=== PATIENT | male | born 1980 | race Caucasian/White ===

== ENCOUNTER 2025-08-06 17:59 | Emergency (ER) | payer SELFPAY ==
[2025-08-06 18:24] VITALS: BP 140/94; PULSE 81; RESP 16; TEMP 36.9; O2SAT 100
--- NOTE | 2025-08-06 18:26 | ED.GENADULT ---
HPI - General Adult General Chief complaint: Unspecified Stated complaint: food lodged in throat Time Seen by Provider: 08/06/25 18:10 Source: patient and RN notes reviewed Mode of arrival: ambulatory Limitations: no limitations History of Present Illness HPI narrative: 45-year-old male presents to [facility] complaining of food stuck in throat. Losing steak approximally 3 hours ago when he got a P stuck in his esophagus. Patient denies any choking however he feels like some stuck in his throat. Patient trying to drink fluids and attempt to flush the obstruction and is unable to, he reports he is throwing fluid back up afterwards. Patient into the vomit without success. Patient denies any difficulty breathing, or stridor, or any other symptoms. Patient says he has a history of this but states he has never had to go to GI for it. Review of Systems Review of Systems: CONSTITUTIONAL: Denies fever, chills, or sweats. EYES: Denies visual changes, redness, or discharge. ENT: Denies rhinorrhea, congestion, sore throat, or otalgia. Positive for dysphagia CARDIOVASCULAR: Denies chest pain, palpitations, or edema. RESPIRATORY: Denies cough or dyspnea. GASTROINTESTINAL: Denies abdominal pain, nausea, or diarrhea. Positive vomiting. GENITOURINARY: Denies dysuria or hematuria. SKIN: Denies rash or itching. MUSCULOSKELETAL: Denies back pain, joint pain, or myalgia. NEUROLOGIC: Denies headache, numbness, or weakness. PSYCHIATRIC: Denies anxiety or depression. All other systems reviewed are negative, except as documented in HPI. PMFSH Comments At the time of my signature, I reviewed and agree with the nursing past medical, surgical, social, and family history. There is no relevant family history pertinent to the patient complaint. Exam Narrative: GENERAL: This is a well-nourished, well-developed adult, in no apparent distress. They are non ill-appearing, nontoxic appearing. HEAD: normocephalic, atraumatic. EYES: Sclera clear/white. Conjunctiva normal. Vision is grossly intact. Extraocular movements intact EARS: External ears normal, Hearing grossly intact. NOSE: External nose normal THROAT: Mucous membranes moist, posterior pharynx erythema without swelling. Uvula midline. NECK: Neck supple, non-tender without lymphadenopathy, masses or thyromegaly. CARDIOVASCULAR: Regular rate and rhythm without murmurs, gallops, or rubs. RESPIRATORY: Clear to auscultation. Breath sounds equal bilaterally. No wheezes, rales, or rhonchi. SKIN: warm, Dry, intact with no suspicious lesions or rash, good texture and turgor. NEURO: awake, alert, and oriented to person, place and time. There were no obvious focal neurologic abnormalities. EXTREMITIES: No joint tenderness, effusion, or edema noted. Course Course Emergency Course: Portions of this record may have been created with voice recognition software Level of Care: Express Care Visit Vital Signs Vital signs: Vital Signs Temperature 98.4 F 08/06/25 18:24 Pulse Rate 81 08/06/25 18:24 Respiratory Rate 16 08/06/25 18:24 Blood Pressure 140/94 H 08/06/25 18:24 Pulse Oximetry 100 08/06/25 18:24 Oxygen Delivery Room Air 08/06/25 18:24 Temperature 98.4 F 08/06/25 18:24 Pulse Rate 81 08/06/25 18:24 Respiratory Rate 16 08/06/25 18:24 Blood Pressure 140/94 H 08/06/25 18:24 Pulse Oximetry 100 08/06/25 18:24 Oxygen Delivery Room Air 08/06/25 18:24 Reviewed Transfer Transfered to: [facility]: [facility] Transfer rationale: Possible esophageal obstruction due to food impaction, patient requires higher level care, possible GI consult Accepting physician: Dr. Potter Medical Decision Making MDM Narrative Medical decision making narrative: Patient likely has food impaction with esophageal obstruction. No respiratory compromise, airways patent. Vital signs hemodynamically stable. Given patient's symptoms, it is recommend the patient seek a higher level care and proceed immediately to the emergency department. Patient is agreeable at [facility]. Patient agreed to go by ambulance. EMS called. Called over to [facility] spoke to Dr. Potter who is aware this patient and accepted the patient for transfer. Patient advised to remain NPO proceed immediately to the ER. Differential Diagnosis Differential Diagnosis: Esophageal obstruction, Food impaction, choking, stridor, difficulty breathing Vital Signs Vital Signs: Vital Signs Temperature 98.4 F 08/06/25 18:24 Pulse Rate 81 08/06/25 18:24 Respiratory Rate 16 08/06/25 18:24 Blood Pressure 140/94 H 08/06/25 18:24 Pulse Oximetry 100 08/06/25 18:24 Oxygen Delivery Room Air 08/06/25 18:24 Temperature 98.4 F 08/06/25 18:24 Pulse Rate 81 08/06/25 18:24 Respiratory Rate 16 08/06/25 18:24 Blood Pressure 140/94 H 08/06/25 18:24 Pulse Oximetry 100 08/06/25 18:24 Oxygen Delivery Room Air 08/06/25 18:24 Critical Care Time Critical Care Time Critical Care Time: No Discharge Plan Discharge Clinical Impression: Esophageal obstruction due to food impaction Patient Disposition: Acute Care Hospital Condition: Stable Patient Language: Thai Follow-up/Referrals: PHYSICIAN,KEYBOARD INSTRUMENT REPAIRER [Primary Care Provider, Internal Medicine] Time of Disposition: 18:26
== END 2025-08-06 18:22 | disposition short-term general hospital (02) ==
DX: T18.128A Food in esophagus causing other injury, initial encounter (principal); W44.F3XA Food entering into or through a natural orifice, initial encounter
CPT/HCPCS: 99215; G0463

== ENCOUNTER 2025-08-06 18:43 | Emergency (ER) | payer SELFPAY ==
[2025-08-06] VITALS (10 sets, daily range): BP systolic 129–171; BP diastolic 82–100; PULSE 70–86; RESP 13–20; TEMP 36.2–36.7; O2SAT 96–100
--- NOTE | ~2025-08-06 | XR_ITS ---
XR chest 1V portable INDICATION:food bolus . REFERENCE: None FINDINGS: A single AP of the chest demonstrates normal heart size. The lungs are clear. There is no evidence of pneumothorax or pleural effusion. IMPRESSION: No acute pulmonary findings. Reviewed, dictated and finalized at location S.
--- NOTE | 2025-08-06 20:20 | ED.SKABFB ---
HPI - Skin/Abscess/Foreign Bdy General Chief complaint: Skin/Abscess/Foreign Body Stated complaint: food bolus Time Seen by Provider: 08/06/25 20:13 History of Present Illness HPI narrative: 45-year-old male with no pertinent past medical history presenting to the emergency department with food bolus impaction. He was eating steak approximately 3:00 p.m. earlier today when he fell to get stuck in his esophagus. States that this happened to him several times and usually goes away on its own. Denies any history of endoscopy. States that whenever he tries to swallow anything he spits it right back up and even his own secretions. Awake alert oriented. Went to urgent care prior to arrival and was transferred to the ER for further evaluation. No shortness of breath, difficulty breathing, stridor, chest pain, shortness a breath. Only feeling sensation of a stock piece of food in his neck/chest. Related Data Home Medications ?Medication ?Instructions ?Recorded ?Confirmed ?Last Taken ?Type No Home Medications 08/06/25 08/06/25 Unknown History Allergies Allergy/AdvReac Type Severity Reaction Status Date / Time No Known Allergies Allergy Verified 08/06/25 18:31 Review of Systems Review of Systems: As reviewed above in HPI Exam Narrative: GENERAL: Well-appearing. Spitting up frequently throughout the examination. Conversing in full sentences. HEAD: [Normocephalic, atraumatic.] EYES: [PERRLA and EOMI.] ENT: Nares clear, no rhinorrhea or epistaxis. Mucous membranes moist. NECK: Supple. CHEST: [Clear to auscultation. No respiratory distress.] HEART: [Regular rate and rhythm]. No murmur heard. [Normal peripheral pulses.] ABDOMEN: [Soft, nondistended], [nontender], [No rigidity or guarding] EXTREMITIES: Normal range of motion. [No edema.] SKIN: Warm, dry, no rash. NEURO: [No focal deficits]. Alert and oriented [x3.] PSYCH: [Normal mood and affect.] Course Vital Signs Vital signs: Vital Signs Temperature 36.7 C 08/06/25 19:17 Pulse Rate 86 08/06/25 19:17 Respiratory Rate 18 08/06/25 19:17 Blood Pressure 140/98 H 08/06/25 19:17 Pulse Oximetry 100 08/06/25 19:17 Temperature 36.2 C L 08/06/25 22:33 Pulse Rate 71 08/06/25 23:23 Respiratory Rate 20 08/06/25 23:23 Blood Pressure 147/94 H 08/06/25 23:23 Pulse Oximetry 98 08/06/25 23:23 Oxygen Delivery Room Air 08/06/25 23:23 MDM - Skin/Abscess/Foreign Bdy MDM Narrative Medical decision making narrative: 45-year-old male with no pertinent past medical history presenting to the emergency department with food bolus impaction. He was eating steak approximately 3:00 p.m. earlier today when he fell to get stuck in his esophagus. States that this happened to him several times and usually goes away on its own. Denies any history of endoscopy. States that whenever he tries to swallow anything he spits it right back up and even his own secretions. Awake alert oriented. Went to urgent care prior to arrival and was transferred to the ER for further evaluation. No shortness of breath, difficulty breathing, stridor, chest pain, shortness a breath. Only feeling sensation of a stock piece of food in his neck/chest. Physical exam is largely unremarkable with normal vital signs but patient is spitting up frequently throughout the examination given his suspected food bolus impaction. Upper chest x-ray obtained does not show any free air or signs of any acute cardiothoracic process. Laboratory studies obtained and he was given combination of Pepcid Zofran and intravenous glucagon to try and dislodge the food bolus given that he has never had GI evaluation for this and usually passes spontaneously. Will trial conservative therapy and if unsuccessful call in GI for endoscopy. Conservative therapy unsuccessful. Patient still awake and tolerating secretions but spitting up frequently. Spoke to Dr. Arvizu who activated the GI suite for endoscopy removal and patient left the ER to go to GI lab. Medical Records Attestation: I reviewed the patient's medical records. Lab Data Attestation: I reviewed the patient's lab results. 08/06/25 20:34 08/06/25 20:34 Labs: Lab Results 08/06/25 Range/Units 20:34 WBC 11.0 H (4.5-10.0) K/mm3 RBC 4.84 (4.6-6.20) M/mm3 Hgb 15.0 (14.0-18.0) g/dL Hct 44.7 (42.0-52.0) % MCV 92.4 (80-100) fl MCH 31.0 (26-34) pg MCHC 33.6 (32-36) g/dl RDW 12.6 (11.5-14.5) % Plt Count 367 (150-375) k/mm3 MPV 9.6 (7.4-10.4) fl Immature Gran % (Auto) 0.2 (0-0.5) % Neut % (Auto) 74.6 H (45.5-73.1) % Lymph % (Auto) 16.5 L (18.3-44.2) % [place] % (Auto) 6.7 (2.6-8.5) % Eos % (Auto) 1.4 (0-4.4) % Baso % (Auto) 0.6 (0.2-1.2) % Lymph # (Auto) 1.81 (0.9-3.2) K/mm3 [place] # (Auto) 0.7 H (0.1-0.6) K/mm3 Eos # (Auto) 0.2 (0-0.3) K/mm3 Baso # (Auto) 0.1 (0.0-0.1) K/mm3 Abs Immat Gran (auto) 0.02 (0.00-0.031) K/mm3 Absolute Neuts (auto) 8.2 H (1.3-6.7) K/mm3 Absolute Nucleated RBC 0.000 (0.0-0.012) K/mm3 Nucleated RBC % 0.0 (0.0-0.2) % PT 15.7 H (11.1-14.7) Seconds INR 1.3 APTT 31.1 (22.3-36.8) Seconds Sodium 138 (137-145) mmol/L Potassium 3.4 (3.4-5.0) mmol/L Chloride 103 (98-107) mmol/L Carbon Dioxide 27 (22-30) mmol/L Anion Gap 8 (4-12) mmol/L BUN 10 (9-20) mg/dL Creatinine 0.83 (0.7-1.3) mg/dL Estim Creat Clear Calc 89 ml/min Estimated GFR > 60 (59 - ) Glucose 91 (65-110) mg/dL Calcium 9.3 (8.4-10.2) mg/dL Imaging Data Attestation: I personally reviewed and interpreted this imaging study as follows: My impression: Impressions Chest X-Ray 08/06/25 20:50 IMPRESSION: No acute pulmonary findings. Critical Care Time Critical Care Time Critical Care Time: Yes Total Critical Care Time: 35 Discharge Plan Discharge Clinical Impression: Esophageal obstruction due to food impaction Patient Disposition: Home Condition: Improved Instructions: Antibiotic Form Patient Language: Belarusian Prescriptions: No Action No Home Medications Follow-up/Referrals: PHYSICIAN,DYE PENETRANT TESTING TECHNICIAN [Primary Care Provider, Internal Medicine] Stand Alone Forms: General Discharge Information Time of Disposition: 06:32
[2025-08-06] MEDS: ONDANSETRON INJ 4 MG/2 ML VIAL IV PUSH (20:30)
[2025-08-06] MEDS: FAMOTIDINE 20 MG/2 ML VIAL IV PUSH (20:32)
[2025-08-06 20:41] LABS: Hematocrit 44.7 % (42.0-52.0); Hemoglobin 15.0 g/dL (14.0-18.0); Immature Granulocyte Percent A 0.2 % (0-0.5); Lymphocytes Absolute Auto 1.81 K/mm3 (0.9-3.2); Mean Corpuscular HGB Conc 33.6 g/dl (32-36); Mean Corpuscular Hemoglobin 31.0 pg (26-34); Mean Corpuscular Volume 92.4 fl (80-100); Nucleated Red Blood Cells Absolute Auto 0.000 K/mm3 (0.0-0.012); Nucleated Red Blood Cells Perc 0.0 % (0.0-0.2); Platelet Count Result 367 k/mm3 (150-375); Red Blood Count 4.84 M/mm3 (4.6-6.20); White Blood Count 11.0 K/mm3 (4.5-10.0)
[2025-08-06] MEDS: GLUCAGON FOR INJ 1 MG VIAL IV PUSH (20:44)
[2025-08-06 20:53] LABS: Anion Gap 8 mmol/L (4-12); Blood Urea Nitrogen 10 mg/dL (9-20); Calcium 9.3 mg/dL (8.4-10.2); Carbon Dioxide 27 mmol/L (22-30); Chloride 103 mmol/L (98-107); Estimated CRCL calculation 89 ml/min; Estimated Glomerular Filt Rate > 60; Glucose 91 mg/dL (65-110); Potassium 3.4 mmol/L (3.4-5.0); Sodium 138 mmol/L (137-145)
[2025-08-06 21:01] LABS: INR 1.3; Prothrombin Time 15.7 Seconds (11.1-14.7)
[2025-08-06 21:02] LABS: Partial Thromboplastin Time 31.1 Seconds (22.3-36.8)
--- NOTE | 2025-08-06 22:27 | P.HP_ITS ---
History of Present Illness History of Present Illness Consent: Risks, benefits, and alternatives have been discussed and questions answered. Patient agrees to proceed with procedure. Chief complaint: food bolus Narrative: Rome Rosado is a 45 year old male here with food bolus, he had steak at 2 pm and can not even swallow own saliva, never had EGD. Review of Systems Review of Systems: All systems reviewed & are unremarkable except as noted in HPI and below Meds Home Medications and Allergies Home Medications ?Medication ?Instructions ?Recorded ?Confirmed ?Type No Home Medications 08/06/25 08/06/25 H istory Allergies Allergy/AdvReac Type Severity Reaction Status Date / Time No Known Allergies Allergy Verified 08/06/25 18:31 Vital Signs Vital Signs - 24 hr 08/06/25 19:17 08/06/25 20:16 08/06/25 22:03 Temperature 98.1 F 97.8 F Pulse Rate 86 80 71 Respiratory Rate 18 14 13 Blood Pressure 140/98 H 144/93 H 139/89 Pulse Oximetry 100 100 100 Oxygen Delivery Room Air 08/06/25 22:13 Temperature 97.8 F Pulse Rate 82 Respiratory Rate 20 Blood Pressure 171/100 H Pulse Oximetry 100 Oxygen Delivery Room Air Exam Const: General: comfortable and no acute distress HENMT: Face/Nose/Sinus: Normal nares present Eyes: General: appearance normal, both eyes and all related structures Neck: Neck: no JVD Resp: Auscultation: clear to auscultation bilaterally Cardio: Rate: regular rate Rhythm: regular rhythm GI: Inspection: non-distended GI Palp: Yes Soft to palpation Skin: General skin exam: normal color Extrem: General: normal to inspection Psych: Mental Status: mental status grossly normal Assessment and Plan Assessment and plan (1) Esophageal obstruction due to food impaction: Code(s): T18.128A - Food in esophagus causing other injury, initial encounter; W44.F3XA - Food entering into or through a natural orifice, initial encounter Status: Acute Assessment and Plan: urgent EGD
--- NOTE | 2025-08-06 22:29 | S_PTH ---
PATIENT: Rome Rosado LOC: [facility]#:[id number] AGE/SX: 45/M ROOM: RE08/06/[address]: Denzel Khoury MD : 1980 BED: DIS: 08/06/2025 SPEC #: [id number] RECD: 08/07/25 08:04 STATUS: CHARO REQ #: [id number] ARABELLA: 08/06/25 22:[address]: Joseph Mccartney DEPT: [facility] Surgical RECD BY: Sandy Madrid ENTERED: 08/07/25 08:04 SP TYPE: Surgical OTHR DR: HAND CANDLE MOLDER PHYSICIAN Denzel Khoury MD Tissues: A - Esophageal Biopsy B - Gastric Biopsy Procedures: Hematoxylin and Eosin Stain Gross and Microscopic Level 4
--- NOTE | 2025-08-06 22:32 | P.PNAN_ITS ---
Anes - Initial Pre Proc Eval Procedure: Operation Date: 08/06/25 10:00 Proposed Procedures p Esophagogastroduodenoscopy EGD - Joseph Mccartney MD Date/Time: 08/06/25 22:32 Pre Op Diagnosis: food bolus Patient Data Age: 45 Gender: M Height: 1.85 m Weight: 63.8 kg Last Vital Signs Temp 36.6 C 08/06/25 22:13 Pulse 82 08/06/25 22:13 Resp 20 08/06/25 22:13 BP 171/100 H 08/06/25 22:13 Pulse Ox 100 08/06/25 22:13 O2 Del Method Room Air 08/06/25 22:13 Allergies Allergy/AdvReac Type Severity Reaction Status Date / Time No Known Allergies Allergy Verified 08/06/25 18:31 Home Medications ?Medication ?Instructions ?Recorded ?Confirmed ?Type No Home Medications 08/06/25 08/06/25 H istory Laboratory Tests 08/06/25 20:34 WBC 11.0 H K/mm3 (4.5-10.0) RBC 4.84 M/mm3 (4.6-6.20) Hgb 15.0 g/dL (14.0-18.0) Hct 44.7 % (42.0-52.0) MCV 92.4 fl (80-100) MCH 31.0 pg (26-34) MCHC 33.6 g/dl (32-36) RDW 12.6 % (11.5-14.5) Plt Count 367 k/mm3 (150-375) MPV 9.6 fl (7.4-10.4) Immature Gran % (Auto) 0.2 % (0-0.5) Neut % (Auto) 74.6 H % (45.5-73.1) Lymph % (Auto) 16.5 L % (18.3-44.2) [place] % (Auto) 6.7 % (2.6-8.5) Eos % (Auto) 1.4 % (0-4.4) Baso % (Auto) 0.6 % (0.2-1.2) Lymph # (Auto) 1.81 K/mm3 (0.9-3.2) [place] # (Auto) 0.7 H K/mm3 (0.1-0.6) Eos # (Auto) 0.2 K/mm3 (0-0.3) Baso # (Auto) 0.1 K/mm3 (0.0-0.1) Abs Immat Gran (auto) 0.02 K/mm3 (0.00-0.031) Absolute Neuts (auto) 8.2 H K/mm3 (1.3-6.7) Absolute Nucleated RBC 0.000 K/mm3 (0.0-0.012) Nucleated RBC % 0.0 % (0.0-0.2) PT 15.7 H Seconds (11.1-14.7) INR 1.3 APTT 31.1 Seconds (22.3-36.8) Sodium 138 mmol/L (137-145) Potassium 3.4 mmol/L (3.4-5.0) Chloride 103 mmol/L (98-107) Carbon Dioxide 27 mmol/L (22-30) Anion Gap 8 mmol/L (4-12) BUN 10 mg/dL (9-20) Creatinine 0.83 mg/dL (0.7-1.3) Estim Creat Clear Calc 89 ml/min Estimated GFR > 60 (59 - ) Glucose 91 mg/dL (65-110) Calcium 9.3 mg/dL (8.4-10.2) Patient hx anesthesia problems: none Family hx anesthesia problems: none Results Review: All pre-operative results and documents have been reviewed as part of the pre- operative evaluation. Anes - Eval Final PreProcedure Day of Procedure 08/06/25 22:32 Patient weight: thin Heart: tachycardia Lungs: decreased breath sounds Airway: Mallampati scale class II Neurological: alert and oriented Last oral intake: >/= 8 hours ASA classification: III Emergent: yes Anesthetic plan: proceed Anesthesia type and monitoring: general ETT and standard monitoring Results Review: All pre-operative results and documents have been reviewed as part of the pre- operative evaluation. Informed Consent: The patient's anesthetic plan and its attendant risks and benefits were discussed with the patient/family/POA. Questions were solicited and answers provided to the satisfaction of the patient/family/POA.
[2025-08-06] MEDS: LACTATED RINGERS 1,000 ML 150 ML IV CONT (22:40)
--- NOTE | 2025-08-06 22:46 | SUR.PREOP ---
Patient pre oped and recovered in procedure room 3
== END 2025-08-06 23:33 | disposition home or self-care (01) ==
PROVIDERS: Internal Medicine Gastroenterology; Emergency Provider Student in an Organized Health Care Education/Training Program
PROC: 0DJ08ZZ Inspection of Upper Intestinal Tract, Via Natural or Artificial Opening Endoscopic (ICD-10-PCS; principal; 2025-08-06 10:00)
DX: T18.128A Food in esophagus causing other injury, initial encounter (principal); W44.F3XA Food entering into or through a natural orifice, initial encounter
CPT/HCPCS: 36415; 71045; 80048; 85025; 85610; 85730; 88305; 96361; 96374; 96375; 99284; J0330; J1610; J2003; J2405; J2704; J7120